=== PATIENT | male | born 1945 | race Caucasian/White ===

== ENCOUNTER 2024-01-18 03:58 | Inpatient (IN) | payer MEDICARE, BC, OTHER ==
[2024-01-18] MEDS ORDERED: Magnesium 2 GM/50 ML BAG (IN WATER) ONE (04:03)
[2024-01-18] MEDS ORDERED: Nitroglycerin 0.4 MG TAB 1 EACH ONE (04:08)
[2024-01-18] MEDS ORDERED: Albuterol 2.5 MG (0.5 mL) NEB ONE (04:10)
[2024-01-18] MEDS ORDERED: Albuterol 2.5 MG (3 mL) NEB ONE (04:10)
[2024-01-18] MEDS ORDERED: Ondansetron PF 4 MG/2 ML Vial ONE (04:13)
[2024-01-18 04:18] LABS: #Basophils 0.04 10x3/uL (0.0-0.2); %Basophils 0.3 % (0.0-1.0); %Eosinophils 0.6 % (0.0-10.0); %Lymphocytes 17.1 % (21.0-51.0); %Monocytes 6.7 % (0.0-10.0); %Neutrophils 74.6 % (42.0-75.0); Hematocrit 43.9 % (42.0-52.0); Hemoglobin 14.6 g/dL (14.0-18.0); Mean Corpuscular HGB CONC 33.3 g/dL (32.0-36.0); Mean Corpuscular Volume 93.2 fL (78.0-98.0); Mean Platelet Volume 9.7 fL (7.4-10.4); Platelet Count 164 10x3/uL (130-400); RBC Distribution Width 14.9 % (11.5-14.5); Red Blood Cell (RBC) Count 4.71 mill/uL (4.70-6.10)
[2024-01-18 04:29] LABS: ALT (SGPT) 23 U/L (8-55); AST (SGOT) 26 U/L (5-34); Albumin 3.9 g/dL (3.4-4.8); Alkaline Phosphatase 69 U/L (40-110); Anion Gap 18 mmol/L (10-20); BUN (Urea Nitrogen) 16 mg/dL (8.4-25.7); Bilirubin, Total 1.1 mg/dL (0.2-1.2); Calc. Creatinine Clearance 0 mL/min (70-130); Calcium 9.6 mg/dL (7.8-10.44); Carbon Dioxide 25 mmol/L (23-31); Chloride 98 mmol/L (98-107); Estimated GFR 71; Globulin 3.8 g/dL (2.4-3.5); Glucose 103 mg/dL (83-110); Lipase 24 U/L (8-78); Magnesium 1.7 mg/dL (1.6-2.6); Potassium 4.4 mmol/L (3.5-5.1); Protein, Total 7.7 g/dL (5.8-8.1); Sodium 137 mmol/L (136-145)
[2024-01-18 04:32] LABS: Troponin I 0.059 ng/mL (< 0.028)
[2024-01-18 04:46] LABS: Actual Bicarbonate (HCO3a) 23.8 mEq/L (22-28); Analyzer IN Cardio ER; Base Excess (BEa) -0.5 mEq/L (-2.0 to +3.0); CO2 Tension 38.3 mmHg (35.0-45.0); Calcium, Ionized (arterial) 1.18 mmol/L (1.12-1.30); Carboxyhemoglobin (COHb) 0.6 gm% (0.0-3.0); Hematocrit-ABG 41 % (42.0-52.0); O2 Tension (PaO2), arterial 144.5 mmHg (> 70.0); Potassium - ABG Lab 4.09 mmol/L (3.70-5.30); pH, Arterial 7.412 (7.35-7.45)
[2024-01-18 04:50] LABS: ALV-art Gradient 128.475 mmHg (0-20); Puncture Site LRA
[2024-01-18] MEDS ORDERED: Sodium Chloride 0.9% 100 ML ONE (05:13)
[2024-01-18] MEDS ORDERED: cefTRIAXone (ROCEPHIN) 2 GM VIAL ONE (05:13)
[2024-01-18] MEDS ORDERED: Azithromycin 500 MG VIAL ONE (05:37)
[2024-01-18] MEDS ORDERED: Sodium Chloride 0.65% Nasal 44 ML BOT EA NARE PRN (07:44)
[2024-01-18] MEDS ORDERED: Acetaminophen 650 MG Suppository PR PRN (07:44)
[2024-01-18] MEDS ORDERED: Ondansetron PF 4 MG/2 ML Vial IVP PRN (07:44)
[2024-01-18] MEDS ORDERED: Ipratropium/Albuterol 3 ML NEB NEB PRN (07:44)
[2024-01-18] MEDS ORDERED: Ondansetron ODT 4 MG TAB PO PRN (07:44)
[2024-01-18] MEDS ORDERED: Loratadine 10 MG TAB PO PRN (07:44)
[2024-01-18] MEDS ORDERED: Moisturizing Cream (Eucerin) 113 GM JAR TOP PRN (07:44)
[2024-01-18] MEDS ORDERED: diphenhydrAMINE 25 MG CAP PO PRN (07:44)
[2024-01-18] MEDS ORDERED: Artificial Tear Sol 15 ML BOT EA EYE PRN (07:44)
[2024-01-18] MEDS ORDERED: Nitroglycerin 0.4 MG TAB (25 Tab Bottle) SL PRN (07:49)
[2024-01-18] MEDS ORDERED: Electrolyte Replacement Protocol 1 EACH FS SCH (08:00)
[2024-01-18 08:39] LABS: Magnesium 2.2 mg/dL (1.6-2.6); Phosphorus 3.6 mg/dL (2.3-4.7)
[2024-01-18 08:45] LABS: Critical Call Chem Troponin I NUR.RG3@0845; Troponin I 0.527 ng/mL (< 0.028)
[2024-01-18 09:48] VITALS: BMI 25.9
[2024-01-18] MEDS ORDERED: Electrolyte Replacement Protocol FS PRN (10:45)
[2024-01-18] MEDS: Famotidine 20 MG TAB PO SCH (11:27)
[2024-01-18] MEDS: Enoxaparin 40 MG (0.4 mL) SYRINGE SC SCH (11:34)
[2024-01-18] MEDS: Aspirin 325 MG TAB PO SCH (11:34)
[2024-01-18] MEDS: methylPREDNISolone Sod Succ 40 MG VIAL IVP SCH (11:34)
[2024-01-18] MEDS: Famotidine/PF 20 mg/2ml Vial SLOW IVP SCH (11:35)
[2024-01-18] MEDS: LevoFLOXacin 750 mg/D5W 750 MG in Premix 1 BAG IVPB SCH (11:48)
[2024-01-18] MEDS: Ipratropium/Albuterol 3 ML NEB NEB SCH (12:45)
[2024-01-18] MEDS ORDERED: Ipratropium/Albuterol 3 ML NEB NEB SCH (13:00)
[2024-01-18 14:29] LABS: Influenza A by NAA Not Detected (NotDetected); Influenza B by NAA Not Detected (NotDetected); RSV by NAA Not Detected (NotDetected); SARS-CoV-2 NAA Rapid Test Not Detected (NotDetected)
[2024-01-18] MEDS: Glycopyrrolate 1 MG TAB PO SCH (14:45)
[2024-01-18] MEDS: Oxymetazoline HCl 0.05% (30 ML BOT) NS SCH (17:49)
[2024-01-18] MEDS: HYDROcodone/Acetaminophen 10/325 mg Tablet PO PRN (18:07)
[2024-01-18 18:08] LABS: Critical Call Chem Troponin I NUR.BM7 @1800
[2024-01-18] MEDS: Ipratropium/Albuterol 3 ML NEB ONE (19:27)
[2024-01-18] MEDS: Budesonide 0.5 MG/2 ML NEB INH SCH (19:32)
[2024-01-18] MEDS: Rosuvastatin 20 MG TAB PO SCH (20:21)
[2024-01-18] MEDS: cloNIDine 0.1 MG TAB PO SCH (20:21)
[2024-01-18] MEDS: Zolpidem Tartrate 5 MG TAB PO SCH (20:21)
[2024-01-18] MEDS: Tamsulosin HCl 0.4 MG CAP PO SCH (20:22)
[2024-01-18] MEDS: Ramipril 5 MG CAP PO SCH (20:22)
[2024-01-19 05:41] LABS: #Basophils Less than 0.03 10x3/uL (0.0-0.2); #Eosinphils Less than 0.03 10x3/uL (0.0-0.7); %Basophils 0.1 % (0.0-1.0); %Monocytes 3.9 % (0.0-10.0); %Neutrophils 88.2 % (42.0-75.0); Hematocrit 36.9 % (42.0-52.0); Hemoglobin 12.3 g/dL (14.0-18.0); Mean Corpuscular HGB CONC 33.3 g/dL (32.0-36.0); Mean Corpuscular Hemoglobin 31.5 pg (27.0-31.0); Mean Corpuscular Volume 94.6 fL (78.0-98.0); Mean Platelet Volume 9.5 fL (7.4-10.4); Platelet Count 147 10x3/uL (130-400); RBC Distribution Width 14.8 % (11.5-14.5)
[2024-01-19 06:07] LABS: Anion Gap 14 mmol/L (10-20); BUN (Urea Nitrogen) 24 mg/dL (8.4-25.7); Calc. Creatinine Clearance 63 mL/min (70-130); Calcium 9.1 mg/dL (7.8-10.44); Carbon Dioxide 29 mmol/L (23-31); Cardiac Risk 2.3 (Less than 4.5); Chloride 95 mmol/L (98-107); Cholesterol 160 mg/dl (< 200 Desired); Estimated GFR 67; Glucose 157 mg/dL (83-110); HDL Cholesterol 70 mg/dL (>60 Neg Risk); LDL Cholesterol, Calculated 74 mg/dL; Potassium 4.4 mmol/L (3.5-5.1); Sodium 134 mmol/L (136-145); Triglycerides 81 mg/dL (Less than 150)
[2024-01-19] MEDS: Pantoprazole DR 40 MG TAB PO SCH (09:04)
[2024-01-19] MEDS: Enoxaparin 40 MG (0.4 mL) SYRINGE SC SCH (09:04)
[2024-01-19] MEDS: cloNIDine 0.2 MG TAB PO SCH (09:04)
[2024-01-19] MEDS: Aspirin Chewable 81 MG TAB PO SCH (09:04)
[2024-01-19] MEDS: Docusate 100 MG CAP PO SCH (21:23)
[2024-01-20 05:33] LABS: #Basophils Less than 0.03 10x3/uL (0.0-0.2); #Eosinphils Less than 0.03 10x3/uL (0.0-0.7); %Basophils 0.1 % (0.0-1.0); %Monocytes 1.7 % (0.0-10.0); %Neutrophils 91.7 % (42.0-75.0); Hematocrit 36.8 % (42.0-52.0); Hemoglobin 12.8 g/dL (14.0-18.0); Mean Corpuscular HGB CONC 34.8 g/dL (32.0-36.0); Mean Corpuscular Hemoglobin 31.9 pg (27.0-31.0); Mean Corpuscular Volume 91.8 fL (78.0-98.0); Mean Platelet Volume 10.2 fL (7.4-10.4); Platelet Count 159 10x3/uL (130-400); RBC Distribution Width 14.6 % (11.5-14.5); Red Blood Cell (RBC) Count 4.01 mill/uL (4.70-6.10)
[2024-01-20 06:15] LABS: Anion Gap 18 mmol/L (10-20); BUN (Urea Nitrogen) 28 mg/dL (8.4-25.7); Calc. Creatinine Clearance 71 mL/min (70-130); Calcium 9.3 mg/dL (7.8-10.44); Carbon Dioxide 23 mmol/L (23-31); Chloride 96 mmol/L (98-107); Estimated GFR 77; Glucose 151 mg/dL (83-110); Magnesium 2.1 mg/dL (1.6-2.6); Potassium 4.2 mmol/L (3.5-5.1); Sodium 133 mmol/L (136-145)
[2024-01-20] MEDS: Magnesium 2 GM/50 ML(in water) 2 GM in Premix 1 BAG IVPB SCH (11:31)
[2024-01-20] MEDS: Arformoterol 15 MCG/2 ML NEB NEB SCH (18:41)
[2024-01-21] MEDS: Lorazepam 2 MG/ML VIAL ONE (08:15)
[2024-01-21] MEDS: Magnesium Sulfate In Water 4 GM in Premix 1 BAG IVPB SCH (08:33)
[2024-01-21] MEDS: Lorazepam 2 MG/ML VIAL SLOW IVP SCH (08:34)
[2024-01-21] MEDS: Bisacodyl 10 MG SUPP PR PRN (22:00)
[2024-01-21] MEDS: Magnesium Citrate 300 ML BOT PO SCH (22:32)
[2024-01-22] MEDS: Fleet Saline Enema 133 ML BOT PR SCH (01:40)
[2024-01-22 06:32] LABS: #Basophils Less than 0.03 10x3/uL (0.0-0.2); #Eosinphils Less than 0.03 10x3/uL (0.0-0.7); %Basophils 0.1 % (0.0-1.0); %Lymphocytes 2.3 % (21.0-51.0); %Monocytes 3.6 % (0.0-10.0); %Neutrophils 93.3 % (42.0-75.0); Hematocrit 37.4 % (42.0-52.0); Hemoglobin 12.8 g/dL (14.0-18.0); Mean Corpuscular HGB CONC 34.2 g/dL (32.0-36.0); Mean Corpuscular Hemoglobin 31.4 pg (27.0-31.0); Mean Corpuscular Volume 91.7 fL (78.0-98.0); Mean Platelet Volume 9.8 fL (7.4-10.4); Platelet Count 202 10x3/uL (130-400); RBC Distribution Width 14.4 % (11.5-14.5); Red Blood Cell (RBC) Count 4.08 mill/uL (4.70-6.10)
[2024-01-22 06:48] LABS: Anion Gap 14 mmol/L (10-20); BUN (Urea Nitrogen) 35 mg/dL (8.4-25.7); Calc. Creatinine Clearance 66 mL/min (70-130); Calcium 8.9 mg/dL (7.8-10.44); Carbon Dioxide 30 mmol/L (23-31); Chloride 91 mmol/L (98-107); Estimated GFR 70; Glucose 121 mg/dL (83-110); Potassium 4.6 mmol/L (3.5-5.1); Sodium 130 mmol/L (136-145)
[2024-01-22] MEDS ORDERED: Polyethylene Glycol 3350 17 GM Packet PO PRN (10:17)
[2024-01-22] MEDS: Simethicone Chewable 80 MG TAB PO PRN (22:05)
[2024-01-22] MEDS: Senokot S 8.6-50 MG TAB PO SCH (22:08)
[2024-01-23] MEDS: Senokot S 8.6-50 MG TAB PO SCH (07:59)
[2024-01-23] MEDS: Polyethylene Glycol 3350 17 GM Packet PO SCH (07:59)
[2024-01-23] MEDS: Racepinephrine 2.25% 0.5 ML NEB NEB SCH (09:56)
[2024-01-23] MEDS: Lorazepam 2 MG/ML VIAL SLOW IVP SCH (17:16)
[2024-01-24] MEDS: Morphine 2 MG/ML VIAL SLOW IVP PRN (16:58)
[2024-01-25] MEDS ORDERED: Azithromycin 200 MG/5 ML Oral Suspension PO SCH (09:00)
[2024-01-25] MEDS: Azithromycin 250 MG TAB PO SCH (09:59)
[2024-01-25] MEDS ORDERED: Iopamidol-370 76% 500 ML MDV (1 ML CHARGE) ONE (13:18)
[2024-01-25] MEDS: methylPREDNISolone Sod Succ 40 MG VIAL IVP SCH (14:35)
[2024-01-26] MEDS: Acetaminophen 325 MG TAB PO PRN (09:43)
[2024-01-26] MEDS: Azithromycin 250 MG TAB PO SCH (09:46)
[2024-01-26] MEDS: Guaifenesin DM 100-10/5 ML UDCUP PO PRN (10:10)
[2024-01-27] MEDS: Morphine 2 MG/ML VIAL SLOW IVP PRN (02:14)
[2024-01-28 09:19] LABS: #Basophils Less than 0.03 10x3/uL (0.0-0.2); #Eosinphils Less than 0.03 10x3/uL (0.0-0.7); %Basophils 0.1 % (0.0-1.0); %Lymphocytes 2.5 % (21.0-51.0); %Monocytes 2.4 % (0.0-10.0); %Neutrophils 93.1 % (42.0-75.0); Hematocrit 34.6 % (42.0-52.0); Hemoglobin 11.9 g/dL (14.0-18.0); Mean Corpuscular HGB CONC 34.4 g/dL (32.0-36.0); Mean Corpuscular Hemoglobin 31.6 pg (27.0-31.0); Platelet Count 173 10x3/uL (130-400); RBC Distribution Width 13.9 % (11.5-14.5); Red Blood Cell (RBC) Count 3.76 mill/uL (4.70-6.10)
[2024-01-28 09:38] LABS: Anion Gap 14 mmol/L (10-20); BUN (Urea Nitrogen) 25 mg/dL (8.4-25.7); Calc. Creatinine Clearance 88 mL/min (70-130); Calcium 8.5 mg/dL (7.8-10.44); Carbon Dioxide 23 mmol/L (23-31); Chloride 101 mmol/L (98-107); Estimated GFR 91; Glucose 225 mg/dL (83-110); Potassium 4.3 mmol/L (3.5-5.1); Sodium 134 mmol/L (136-145)
[2024-01-29 07:17] LABS: #Basophils 0.04 10x3/uL (0.0-0.2); #Eosinphils Less than 0.03 10x3/uL (0.0-0.7); %Basophils 0.2 % (0.0-1.0); %Lymphocytes 3.5 % (21.0-51.0); %Monocytes 3.2 % (0.0-10.0); %Neutrophils 90.5 % (42.0-75.0); Hematocrit 38.2 % (42.0-52.0); Hemoglobin 13.1 g/dL (14.0-18.0); Mean Corpuscular HGB CONC 34.3 g/dL (32.0-36.0); Mean Corpuscular Hemoglobin 30.8 pg (27.0-31.0); Mean Corpuscular Volume 89.9 fL (78.0-98.0); Mean Platelet Volume 9.9 fL (7.4-10.4); Platelet Count 200 10x3/uL (130-400); RBC Distribution Width 13.8 % (11.5-14.5); Red Blood Cell (RBC) Count 4.25 mill/uL (4.70-6.10)
[2024-01-29 07:32] LABS: Anion Gap 13 mmol/L (10-20); BUN (Urea Nitrogen) 23 mg/dL (8.4-25.7); Calc. Creatinine Clearance 87 mL/min (70-130); Carbon Dioxide 26 mmol/L (23-31); Chloride 101 mmol/L (98-107); Estimated GFR 91; Glucose 155 mg/dL (83-110); Potassium 4.4 mmol/L (3.5-5.1); Sodium 136 mmol/L (136-145)
[2024-01-29] MEDS: methylPREDNISolone Sod Succ 40 MG VIAL IVP SCH (22:06)
[2024-01-29] MEDS: HYDROcodone/Acetaminophen 10/325 mg Tablet PO PRN (22:07)
[2024-01-30 04:19] LABS: #Basophils 0.03 10x3/uL (0.0-0.2); #Eosinphils Less than 0.03 10x3/uL (0.0-0.7); %Basophils 0.2 % (0.0-1.0); %Lymphocytes 3.3 % (21.0-51.0); %Monocytes 2.4 % (0.0-10.0); %Neutrophils 91.4 % (42.0-75.0); Mean Corpuscular HGB CONC 34.3 g/dL (32.0-36.0); Mean Corpuscular Hemoglobin 31.5 pg (27.0-31.0); Mean Corpuscular Volume 91.9 fL (78.0-98.0); Mean Platelet Volume 9.9 fL (7.4-10.4); Platelet Count 174 10x3/uL (130-400); RBC Distribution Width 13.9 % (11.5-14.5); Red Blood Cell (RBC) Count 3.81 mill/uL (4.70-6.10)
[2024-01-30 08:32] VITALS: BMI 25.7
[2024-01-31] MEDS: methylPREDNISolone Sod Succ 40 MG VIAL IVP SCH (08:37)
[2024-01-31] MEDS: Nystatin 500,000 UNITS/5 ML UDCUP PO SCH (20:30)
[2024-02-01 07:26] LABS: #Basophils 0.03 10x3/uL (0.0-0.2); #Eosinphils Less than 0.03 10x3/uL (0.0-0.7); %Basophils 0.2 % (0.0-1.0); %Eosinophils 0.1 % (0.0-10.0); %Lymphocytes 7.3 % (21.0-51.0); %Monocytes 4.6 % (0.0-10.0); %Neutrophils 85.4 % (42.0-75.0); Hematocrit 40.2 % (42.0-52.0); Hemoglobin 13.9 g/dL (14.0-18.0); Mean Corpuscular HGB CONC 34.6 g/dL (32.0-36.0); Mean Corpuscular Hemoglobin 31.7 pg (27.0-31.0); Mean Corpuscular Volume 91.6 fL (78.0-98.0); Mean Platelet Volume 9.7 fL (7.4-10.4); Platelet Count 184 10x3/uL (130-400); RBC Distribution Width 14.3 % (11.5-14.5); Red Blood Cell (RBC) Count 4.39 mill/uL (4.70-6.10)
[2024-02-01 08:34] LABS: Anion Gap 15 mmol/L (10-20); BUN (Urea Nitrogen) 27 mg/dL (8.4-25.7); Calc. Creatinine Clearance 89 mL/min (70-130); Carbon Dioxide 23 mmol/L (23-31); Chloride 100 mmol/L (98-107); Potassium 4.1 mmol/L (3.5-5.1); Sodium 134 mmol/L (136-145)
[2024-02-01 08:35] LABS: Estimated GFR 91; Glucose 76 mg/dL (83-110)
[2024-02-01] MEDS: predniSONE 50 MG TAB PO SCH (09:49)
[2024-02-01 10:15] LABS: Actual Bicarbonate (HCO3a) 22.9 mEq/L (22-28); CO2 Tension 35.8 mmHg (35.0-45.0); Calcium, Ionized (arterial) 1.15 mmol/L (1.12-1.30); Carboxyhemoglobin (COHb) 0.2 gm% (0.0-3.0); Hematocrit-ABG 40 % (42.0-52.0); Hemoglobin (Hb) 13.5 g/dL (14.0-18.0); Potassium - ABG Lab 4.12 mmol/L (3.70-5.30); pH, Arterial 7.424 (7.35-7.45)
[2024-02-01 15:23] LABS: Puncture Site RRA
[2024-02-03 08:01] VITALS: TEMP 97.1
[2024-02-03 08:15] VITALS: BP 162/86
== END 2024-02-03 12:20 | disposition home or self-care (01) | DRG 871 ==
LOC: ERS 03:58 → ERHOLD 06:29 → OBSVTOIN 07:44 → IMCU/EMU 09:07
PROVIDERS: ADMIT Student in an Organized Health Care Education/Training Program; ATTEND Internal Medicine
PROC: 4A133R1 Monitoring of Arterial Saturation, Peripheral, Percutaneous Approach (ICD-10-PCS; principal; 2024-01-18)
PROC: 3E03329 Introduction of Other Anti-infective into Peripheral Vein, Percutaneous Approach (ICD-10-PCS; 2024-01-18)
PROC: 5A09457 Assistance with Respiratory Ventilation, 24-96 Consecutive Hours, Continuous Positive Airway Pressure (ICD-10-PCS; 2024-01-18)
DX: A41.9 Sepsis, unspecified organism (principal); I21.A1 Myocardial infarction type 2; J96.21 Acute and chronic respiratory failure with hypoxia; J44.1 Chronic obstructive pulmonary disease with (acute) exacerbation; R65.20 Severe sepsis without septic shock; I11.0 Hypertensive heart disease with heart failure; E78.5 Hyperlipidemia, unspecified; I50.9 Heart failure, unspecified; I25.10 Atherosclerotic heart disease of native coronary artery without angina pectoris; R79.89 Other specified abnormal findings of blood chemistry; K59.00 Constipation, unspecified; J39.8 Other specified diseases of upper respiratory tract; Z79.899 Other long term (current) drug therapy; Z87.891 Personal history of nicotine dependence; Z95.1 Presence of aortocoronary bypass graft
CPT/HCPCS: 0241U; 36415; 36600; 70491; 71045; 71260; 74018; 80048; 80053; 80061; 82805; 83605; 83690; 83735; 83880; 84100; 84145; 84484; 85025; 85379; 87040; 93005; 94150; 94640; 94644; 94660; 94760; 96365; 96367; 96375; G0378; J0456; J0696; J1650; J1956; J2060; J2272; J2405; J2920; J3475; J3490; J7512; J7611; J7620; J7626; Q9967; S0028